=== PATIENT | female | born 1980 | race Caucasian/White ===

== ENCOUNTER 2022-04-09 10:39 | Outpatient (CLI) | payer OTHER, SELFPAY ==
[2022-04-09 13:54] LABS: Chloride* 107 mmol/L (96-114); Potassium* 4.8 mmol/L (3.6-5.1); Sodium* 139 mmol/L (135-149)
[2022-04-09 13:57] LABS: Blood Urea Nitrogen* 17 mg/dL (5-24); Carbon Dioxide* 25 mmol/L (20-32); Cholesterol* 170 mg/dL (90-199); Creatinine* 0.9 mg/dL (0.5-1.5); Estimated Glomerular Filt Rate 83 ml/min; Glucose* 88 mg/dL (60-115); Triglycerides* 42 mg/dL (40-149)
[2022-04-09 13:58] LABS: Calcium* 9.5 mg/dL (8.4-10.6); HDL Cholesterol* 74 mg/dL (>=50); LDL Cholesterol Calculated 88 mg/dL (<100)
[2022-04-10 14:50] LABS: Iron* 28 ug/dL (37-170)
[2022-04-10 15:08] LABS: Vitamin D 25 Hydroxy* 35 ng/mL (30-80)
[2022-04-10 15:41] LABS: Vitamin B12* 491 pg/mL (243-894)
== END 2022-04-09 10:40 | disposition home or self-care (01) ==
PROVIDERS: PCP Physician Assistant Medical; Visit Provider Physician Assistant Medical
DX: Z00.00 Encounter for general adult medical examination without abnormal findings (principal); Z13.6 Encounter for screening for cardiovascular disorders
CPT/HCPCS: 80048; 80061; 82607

== ENCOUNTER 2022-04-10 09:30 | Outpatient (CLI) | payer OTHER, SELFPAY | END 2022-04-10 09:31 | disposition home or self-care (01) | PROVIDERS: PCP Physician Assistant Medical; Visit Provider Physician Assistant Medical | DX: D64.9 Anemia, unspecified (principal) | CPT/HCPCS: 82306; 83540 ==